=== PATIENT | female | born 1955 | race Asian ===

== ENCOUNTER 2024-11-07 11:20 | Emergency (ER) | payer OTHER, SELFPAY ==
[2024-11-07 11:24] VITALS: BP 131/75
--- NOTE | 2024-11-07 11:35 | ED.GENMED ---
History of Present Illness
General
Chief Complaint: Pneumonia Symptoms
Source: patient
Exam Limitations: none
Time Seen by Provider: 11/07/24 11:32
History of Present Illness
History of Present Illness:
See MDM
Past History
Past History
ED Past Medical History: GERD
ED Past Surgical History: Cholecystectomy and Orthopedic
Social History
Tobacco: Non-smoker
Alcohol: None
Drug: None
Personal:
Living: with family
Employment: Employed
Phy Exam
Physical Exam
Physical Exam:
See MDM
Course
Orders/Labs/Results
Orders:
Orders
11/07/24 11:35
Dexamethasone Pf [Decadron] 10 mg PO NOW STA
Ipratropium/Albuterol Sulfate [Duoneb] 3 ml INH R NOW STA
CR Chest - 2 Views Urgent
Comment:
Reason For Exam: Cough
Vital Signs
Initial and Last Documented VS:
Initial Vital Signs
Temp Pulse Resp BP Pulse Ox
97.7 F 84 18 131/75 97
11/07/24 11:24 [id number] 11:24 11/07/24 11:24 11/07/24 11:24 11/07/24 11:24
Last Documented Vital Signs
Temp Pulse Resp BP Pulse Ox
97.7 F 84 18 131/75 97
11/07/24 11:24 11/07/24 11:24 11/07/24 11:24 11/07/24 11:24 11/07/24 11:24
MDM/Problems Addressed
Differential Diagnosis Includes:
HPI and MDM Narrative:
68-year-old female presenting for evaluation of persistent cough and shortness of breath. Patient went to urgent care recently and was diagnosed with pneumonia and she was started on azithromycin and amoxicillin. Patient was concerned because she
is not feeling better. On evaluation, patient is coughing and appears to have a very slight wheeze and bronchospastic cough. Will give a DuoNeb and start on steroids and will obtain chest x-ray to look for worsening pneumonia
Physical exam
General: Well appearing and non-toxic
HEENT: protecting airway
Neck: appears supple
CV: No evidence of cyanosis
Resp: No accessory muscle use. Bronchospastic cough with slight expiratory wheezing
Abd: Non-distended
Extremities: No deformities
Neuro: alert
Psych: Normal affect
Skin: Intact
Problems Addressed including Acute and Chronic Conditions affecting care:
1. Pneumonia
Acuity: acute
Prognosis: stable
Details: Will obtain chest x-ray to look for worsening evidence of pneumonia. Patient started on DuoNeb and steroids
Updates
Chest x-ray concerning for multifocal pneumonia. However, on reassessment, patient states she is feeling much better. I discussed admission versus discharge. The options were IV antibiotics versus switching her amoxicillin to doxycycline and
continuing the azithromycin. Patient opted for discharge and understands strict return precautions
Differential Diagnosis (but not limited to): Pneumonia, viral syndrome, bronchitis, bronchospastic cough
Testing considered: Blood work
Drug therapy (if applicable): OTC meds, please see d/c instruction regarding Rx drugs
Amount and/or Complexity of Data Reviewed
Clinical info obtained from: Patient
External data reviewed: N/A
Labs I independently reviewed (but not limited to): N/A
Radiology: x-ray independently reviewed: Chest x-ray with multifocal pneumonia
Pulse Ox: not hypoxic
EKG independently reviewed: N/A
Industrial Sales Manager: N/A
Critical Care: N/A
Risk of Complication:
Social Determinants of health: Good social support
Discussed with other providers: N/A
Escalation of Care includes Admit/Obs: After being observed in the Emergency Department, pt stable for discharge.
Occasional wrong word or 'sound a like' substitutions may have occurred due to the inherent limitations of voice recognition software. Read the chart carefully and recognize, using context, where substitutions have occurred.
*Critical Care Note
Total Time (30-74mins, 75-104mins- exclusive of procedures): Not Applicable
ED Attending Note
-
Portions of this chart may have been created with voice recognition software.� Occasional wrong word or��sound alike� substitutions may have occurred due to the inherent limitations of voice recognition software.
Discharge Plan
Departure
Patient Disposition: Home (Routine Discharge)
Date of Disposition: 11/07/24
Time of Disposition: 13:16
Patient with high blood pressure during this ER visit?: No
Discharge Problem:
PNA (pneumonia)
Instructions: Pneumonia, Adult (DC)
Prescriptions:
New
doxycycline hyclate 100 mg capsule
100 mg PO BID Qty: 14 0RF
codeine-guaifenesin 10-100 mg/5 mL liquid
5 ml PO Q6H PRN (Reason: Cough) Qty: 200 0RF
No Action
fluticasone propionate [Flonase] 50 mcg/actuation [place],Suspension
1 spray INTRANASAL DAILYPRN PRN (Reason: allergies/congestion)
multivitamin [TAB A DAINA] Tablet
1 tab PO DAILY
losartan 50 mg tablet
50 mg PO HS
metformin 500 mg tablet
500 mg PO DAILY
cetirizine [Zyrtec] 10 mg Tablet
10 mg PO HS
atenolol-chlorthalidone 50-25 mg tablet
1 tab PO DAILY
cyanocobalamin (vitamin B-12) [Vitamin B-12] 1,000 mcg Tablet
1,000 mcg PO DAILY
omeprazole 40 mg capsule,delayed release(DR/EC)
40 mg PO DAILY
famotidine 20 mg tablet
20 mg PO HS
simvastatin 5 mg tablet
5 mg PO HS
amoxicillin 500 mg capsule
500 mg PO TID
Rx Instructions:
11/07/24: amoxicillin 500mg TID x 10 days starting 11/04/24
azithromycin 250 mg tablet
250 mg PO DAILY
Rx Instructions:
11/07/24: last dose on 11/08/24
benzonatate 100 mg capsule
100 mg PO TIDPRN PRN (Reason: cough)
albuterol sulfate 90 mcg/actuation HFA aerosol inhaler
1 inh INHALATION Q4HPRN PRN (Reason: wheeze)
[employer] 45-4-50 mg Tablet,Chewable
2 tab PO DAILY
Referrals:
Lennox Smith MD [Family Provider] -
Activity Restrictions/Additional Instructions:
Please return for any worsening symptoms.
You may return at any time if you have further concerns.
Please follow up with your doctor at the first available appointment, preferably this week.
As we discussed, please continue your azithromycin prescription. We are switching the amoxicillin to doxycycline. Please take the codeine cough medicine as needed for cough.
Thank you for choosing [facility].
Interventions
Interventions:
*Risk Screen - Suicide Last Done: 11/07/24 11:24
Discharge Date and Time
Print Language: MOHAWK
[2024-11-07] MEDS: DUONEB 3 ML INH (11:45)
[2024-11-07] MEDS: DECADRON 10 MG PO (11:45)
[2024-11-07] MEDS: ROBITUSSIN AC 10 ML PO (13:22)
[2024-11-07] MEDS: VIBRAMYCIN 100 MG PO (13:22)
== END 2024-11-07 14:03 | disposition home or self-care (01) ==
LOC: EMR 11:20
PROVIDERS: EMERGENCY PHYSICIAN Student in an Organized Health Care Education/Training Program; FAMILY PHYSICIAN Family Medicine
DX: J18.9 Pneumonia, unspecified organism (principal); K21.9 Gastro-esophageal reflux disease without esophagitis; Z90.49 Acquired absence of other specified parts of digestive tract
CPT/HCPCS: 94640; 99283; 71046

== ENCOUNTER 2024-12-20 08:11 | Emergency (ER) | payer OTHER, SELFPAY ==
[2024-12-20 08:13] VITALS: BP 164/78
--- NOTE | 2024-12-20 09:00 | ED.GENMED ---
History of Present Illness
General
Chief Complaint: Cough
Source: patient, records and spouse
Exam Limitations: none
Time Seen by Provider: 12/20/24 08:47
History of Present Illness
History of Present Illness:
69yoF with a history of hypertension, prediabetes, and GERD presenting with her for evaluation of a cough. Patient was seen in the ED on 11/07/2024 for multifocal pneumonia. She completed a course of antibiotics at that time. She is
feeling better for several weeks although she had some mild lingering cough. She became sick again 3 days ago with worsening cough and fatigue. Cough is mostly dry. 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
with similar symptoms. She also reports some upper back comfort and bilateral rib discomfort primarily with coughing. She denies any shortness of breath, fevers, vomiting, diarrhea, leg swelling, calf pain. Patient is concerned that her pneumonia
is back. No tobacco use.
Past History
Past History
ED Past Medical History: GERD
ED Past Surgical History: Cholecystectomy and Orthopedic
Social History
Tobacco: Non-smoker
Alcohol: None
Drug: None
Personal:
Living: with family
Employment: Employed
Phy Exam
General Physical Exam
General Presentation: well appearing and no apparent distress
General age: appears stated age
General Skin: warm and dry
General Habitus: normal
General Mental: alert
General Hydration: appears well hydrated
ENT Exam
ENT Exam: normocephalic
Cardiovascular Exam
Cardiovascular Exam: regular rate/rhythm, no edema, no murmur and normal peripheral pulses (2+ DP pulses bilaterally)
Pulmonary Exam
Pulmonary Exam: lungs clear, no respiratory distress, no rales, no crackles, no rhonchi and other (+Tenderness to anterior ribcage bilaterally)
Neurological Exam
Neurological Exam: alert
[place] Coma Scale
Eye Opening: Spontaneous
Verbal Response: Oriented
Motor Response: Obeys Commands
GCS Total Score: 15
Skin Exam
Skin Exam: normal color and warm/dry
Psychiatric Exam
Psychiatric Exam: normal mood/affect
Course
Orders/Labs/Results
Orders:
Orders
12/20/24 08:15
CR Chest - 2 Views Urgent
Comment:
Reason For Exam: cough
12/20/24 08:59
Electrocardiogram (*1) Urgent
Reason for Study: Chest Pain
EKG- Treatment ONCE
12/20/24 09:36
COVID-19 Antigen Urgent
Source: Nasal Swab
Complete Blood Count/With Diff Urgent
Influenza A+B Rapid Molecular Urgent
RUBIN Source: Nasal Swab
Specimen Description:
Respiratory Syncytial Virus Urgent
RUBIN Source: Nasal Swab
Specimen Description:
Date Specimen was Collected: 12/20/24
Time Specimen was Collected: 09:35
12/20/24 09:37
Comprehensive Metabolic Panel Urgent
Troponin I Urgent
12/20/24 10:09
Potassium Chloride [KCl] 20 meq PO NOW STA
12/20/24 10:28
EKG- Treatment ONCE
12/20/24 12:30
Electrocardiogram (*1) Urgent
Reason for Study: Chest Pain
12/20/24 12:47
Troponin I Urgent
12/20/24 13:53
Dexamethasone Pf [Decadron] 10 mg PO NOW STA
Abnormal Lab Results
12/20/24 12/20/24
09:36 09:37
MCH 31.4 H pg
(27.0-31.0)
MPV 10.5 H fL
(7.4-10.4)
Absolute Monos (auto) 0.8 H 10^3/uL
(0.1-0.6)
Monocytes % 12.8 H %
(1.7-9.3)
Potassium 3.4 L mmol/L
(3.5-5.1)
BUN 18 H mg/dl
(7-17)
Glucose 109 H mg/dl
(70-99)
AST 51 H U/L
(14-36)
ALT 65 H U/L
(0-35)
12/20/24 09:36
12/20/24 09:37
Vital Signs
Initial and Last Documented VS:
Initial Vital Signs
Temp Pulse Resp BP Pulse Ox
98.3 F 62 18 164/78 96
12/20/24 08:13 12/20/24 08:13 12/20/24 08:13 12/20/24 08:13 12/20/24 08:13
Last Documented Vital Signs
Temp Pulse Resp BP Pulse Ox
98.3 F 79 20 128/74 97
12/20/24 08:13 12/20/24 14:04 12/20/24 14:04 12/20/24 14:04 12/20/24 14:04
MDM/Problems Addressed
Differential Diagnosis Includes:
69yoF here with cough and fatigue x 3 days. Had pneumonia last month and is worried that it is back. 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 No fevers. C/o rib pain with coughing. No SOB. She is hypertensive with otherwise
normal vitals. She is well appearing in no distress. Lungs CTA and respirations non-labored. Differential diagnosis includes but is not limited to: influenza, COVID, other viral illness, bronchitis, pneumonia
Initial ED plan: CXR obtained in triage which is negative for infiltrates. Check cardiac labs, EKG, and CXR.
*EKG
Interpreted by ED Provider?: Yes
EKG Intrepretation Date: 12/20/24
Heart Rate: 59
Rate: bradycardiac
Rhythm: sinus
[place]: normal axis
Interval: normal interval
QRS Pattern: normal QRS
Ischemia: other (Nonspecific T wave changes. T wave inversion in V3.)
*Critical Care Note
Total Time (30-74mins, 75-104mins- exclusive of procedures): Not Applicable
Update Note
Update Note:
Viral testing negative. Labs reveal a potassium of 3.4 which was replaced. Mild transaminitis noted which was also present on prior labs. EKG shows normal sinus rhythm with nonspecific T wave changes. Initial troponin 0.021. Low clinical
suspicion for ACS given that pain is worse with coughing and is reproducible on exam. EKG and troponin performed at 3 hours. Troponin is decreasing and is now undetectable. No evolving EKG changes. No indication for hospitalization at this time.
Suspect bronchitis secondary to viral illness. Dose of Decadron given and supportive care discussed. Patient also requesting a prescription for an albuterol inhaler which was provided. Advised close follow-up with PCP and ED return precautions
discussed. Patient in agreement with plan and was discharged in stable condition.
ED Attending Note
-
Portions of this chart may have been created with voice recognition software.� Occasional wrong word or��sound alike� substitutions may have occurred due to the inherent limitations of voice recognition software.
Discharge Plan
Departure
Patient Disposition: Home (Routine Discharge)
Date of Disposition: 12/20/24
Time of Disposition: 13:53
Patient with high blood pressure during this ER visit?: No
Discharge Problem:
Acute bronchitis
Instructions: Acute Bronchitis, Adult (DC)
Prescriptions:
New
albuterol sulfate 90 mcg/actuation HFA aerosol inhaler
2 puff inhalation Q6H PRN (Reason: shortness of breath or wheezing) Qty: 8.5 0RF
No Action
fluticasone propionate [Flonase] 50 mcg/actuation [place],Suspension
1 spray INTRANASAL DAILYPRN PRN (Reason: allergies/congestion)
multivitamin [TAB A DAINA] Tablet
1 tab PO DAILY
losartan 50 mg tablet
50 mg PO HS
metformin 500 mg tablet
500 mg PO DAILY
cetirizine [Zyrtec] 10 mg Tablet
10 mg PO HS
atenolol-chlorthalidone 50-25 mg tablet
1 tab PO DAILY
cyanocobalamin (vitamin B-12) [Vitamin B-12] 1,000 mcg Tablet
1,000 mcg PO DAILY
omeprazole 40 mg capsule,delayed release(DR/EC)
40 mg PO DAILY
famotidine 20 mg tablet
20 mg PO HS
simvastatin 5 mg tablet
5 mg PO HS
amoxicillin 500 mg capsule
500 mg PO TID
Rx Instructions:
11/07/24: amoxicillin 500mg TID x 10 days starting 11/04/24
azithromycin 250 mg tablet
250 mg PO DAILY
Rx Instructions:
11/07/24: last dose on 11/08/24
benzonatate 100 mg capsule
100 mg PO TIDPRN PRN (Reason: cough)
albuterol sulfate 90 mcg/actuation HFA aerosol inhaler
1 inh INHALATION Q4HPRN PRN (Reason: wheeze)
Robert Applebaum [facility] 45-4-50 mg Tablet,Chewable
2 tab PO DAILY
doxycycline hyclate 100 mg capsule
100 mg PO BID Qty: 14 0RF
codeine-guaifenesin 10-100 mg/5 mL liquid
5 ml PO Q6H PRN (Reason: Cough) Qty: 200 0RF
Referrals:
Lennox Smith MD [Family Provider] -
Activity Restrictions/Additional Instructions:
Drink plenty of fluids and rest. Use honey and humidifier for cough. Use inhaler as needed for wheezing/tightness.
Please follow-up with your family doctor on Monday. Return to the ER with any worsening symptoms or trouble breathing.
Interventions
Interventions:
*Risk Screen - Suicide Last Done: 12/20/24 08:13
*General Assessment Last Done: 12/20/24 08:13
*Neglect/Abuse Screening Last Done: 12/20/24 14:12
ED- Fall Risk Assessment Last Done: 12/20/24 14:13
*ED COVID-19 Vaccine History Last Done: 12/20/24 08:13
*Nursing Disposition Last Done: 12/20/24 14:12
ED- Pulmonary Assessment Last Done: 12/20/24 10:00
Discharge Date and Time
Discharge Date/Time: 12/20/24 14:20
Print Language: HUNGARIAN
[2024-12-20 09:27] VITALS: BMI 32.2
[2024-12-20 09:39] VITALS: BP 137/73
[2024-12-20 09:55] LABS: % Basophils 0.5 % (0-2); % Eosinophils 3.8 % (0-6); % Immature Granulocytes 0.2 % (0-0.5); % Lymphocytes 23.1 % (20.5-51.1); % Monocytes 12.8 % (1.7-9.3); % Neutrophils 59.6 % (42.2-75.2); Absolute Eosinophils 0.2 10^3/uL (0-0.7); Absolute Lymphocytes 1.4 10^3/uL (1.2-3.4); Absolute Monocytes 0.8 10^3/uL (0.1-0.6); Absolute Neutrophils 3.7 10^3/uL (1.4-6.5); Hematocrit 40.9 % (37.0-47.0); Hemoglobin 14.2 g/dL (12.0-16.0); Mean Corp Hgb Conc. 34.7 g/dL (33.0-37.0); Mean Corpuscular Hgb 31.4 pg (27.0-31.0); Mean Corpuscular Volume 90.5 fL (81.0-99.0); Mean Platelet Volume 10.5 fL (7.4-10.4); Nucleated Red Blood Cells % 0 %; Platelet Count 202 10^3/uL (130-400); Red Blood Cell Count 4.52 10^6/uL (4.20-5.40); Red Cell Dist. Width 12.9 % (11.5-14.5); White Blood Cell Count 6.1 10^3/uL (4.8-10.8)
[2024-12-20 10:00] VITALS: BP 128/68
[2024-12-20 10:06] LABS: COVID-19 Antigen Negative (Negative)
[2024-12-20 10:08] LABS: ALT (SGPT) 65 U/L (0-35); AST (SGOT) 51 U/L (14-36); Albumin 4.5 g/dl (3.5-5.0); Alkaline Phosphatase 60 U/L (38-126); Blood Urea Nitrogen 18 mg/dl (7-17); Calcium 9.3 mg/dl (8.4-10.2); Carbon Dioxide 28 mmol/L (22-30); Chloride 98 mmol/L (98-107); Estimated Creatinine Clearance 57 ml/min; Glucose 109 mg/dl (70-99); Potassium 3.4 mmol/L (3.5-5.1); Sodium 137 mmol/L (135-145); Total Bilirubin 0.5 mg/dl (0.2-1.3); Total Protein 7.4 g/dl (6.3-8.2); eGFR > 60.00
[2024-12-20 10:18] LABS: Troponin I 0.021 ng/ml
[2024-12-20 12:42] VITALS: BP 134/67
[2024-12-20] MEDS: KCL 20 MEQ PO (12:44)
[2024-12-20 13:36] LABS: Troponin I < 0.012 ng/ml
[2024-12-20] MEDS: DECADRON 10 MG PO (14:00)
[2024-12-20 14:04] VITALS: BP 128/74
== END 2024-12-20 14:20 | disposition home or self-care (01) ==
LOC: EMR 08:11
PROVIDERS: Physician Assistant; EMERGENCY PHYSICIAN Emergency Medicine; FAMILY PHYSICIAN Family Medicine
DX: J20.9 Acute bronchitis, unspecified (principal); I10 Essential (primary) hypertension; K21.9 Gastro-esophageal reflux disease without esophagitis; R73.03 Prediabetes
CPT/HCPCS: 99285; 71046; 80053; 84484; 85025; 87502; 87807; 87811; 93005